=== PATIENT | male | born 1935 | race Caucasian/White ===

== ENCOUNTER → 2019-09-14 | Outpatient (CLI) | payer OTHER | LOC: HYPER 08:59 | DX: L97.322 Non-pressure chronic ulcer of left ankle with fat layer exposed (principal); L03.116 Cellulitis of left lower limb; I48.0 Paroxysmal atrial fibrillation; I25.10 Atherosclerotic heart disease of native coronary artery without angina pectoris; F17.290 Nicotine dependence, other tobacco product, uncomplicated; Z95.5 Presence of coronary angioplasty implant and graft; Z79.82 Long term (current) use of aspirin; Z90.49 Acquired absence of other specified parts of digestive tract ==

== ENCOUNTER → 2019-09-19 | Outpatient (CLI) | payer OTHER | LOC: SJCVCIMAG 10:12 | DX: I70.201 Unspecified atherosclerosis of native arteries of extremities, right leg (principal); L97.909 Non-pressure chronic ulcer of unspecified part of unspecified lower leg with unspecified severity ==

== ENCOUNTER → 2019-09-28 | Outpatient (CLI) | payer OTHER | LOC: HYPER 09:35 | DX: L97.322 Non-pressure chronic ulcer of left ankle with fat layer exposed (principal); L03.116 Cellulitis of left lower limb; I48.0 Paroxysmal atrial fibrillation; I25.10 Atherosclerotic heart disease of native coronary artery without angina pectoris; F17.200 Nicotine dependence, unspecified, uncomplicated; Z79.82 Long term (current) use of aspirin ==